=== PATIENT | female | born 1940 | race Caucasian/White ===

== ENCOUNTER 2021-03-05 10:59 | Emergency (ER) | payer OTHER ==
[2021-03-05 12:28] LABS: HEMOGLOBIN 12.7 gm/dl (12.3-15.3); RED BLOOD COUNT 4.28 M/UL (4.00-5.10); WHITE BLOOD COUNT 9.8 K/UL (4.5-11.0)
[2021-03-05 12:46] LABS: BUN/CREATININE RATIO 17 (0-10)
== END 2021-03-05 13:48 | disposition home or self-care (01) ==
LOC: ER1 10:59
PROVIDERS: Nurse Practitioner
DX: I83.91 Asymptomatic varicose veins of right lower extremity (principal)
CPT/HCPCS: 80053; 85025; 85610; 85652; 85730; 86140; 93970; 99283